=== PATIENT | female | born 1955 | race Caucasian/White ===

== ENCOUNTER → 2018-12-20 08:50 | Outpatient (CLI) | payer OTHER, SELFPAY ==
[2018-12-20 09:38] LABS: Add Manual Diff / Slide Review NO; Basophils Absolute Auto 0 /uL (0-100); Basophils Percent Auto 0.8 % (0-2); Eosinophils Absolute Auto 300 /uL (0-450); Hematocrit 41.4 % (36-46); Lymphocytes Absolute Auto 2200 /uL (1100-4500); Lymphocytes Percent Auto 42.2 % (25-40); Mean Corpuscular HGB Conc 33.7 % (30-36); Mean Corpuscular Hemoglobin 27.4 PG (26-34); Mean Corpuscular Volume 81.2 fL (80-100); Monocytes Absolute Auto 700 /uL (0-900); Monocytes Percent Auto 12.5 % (3-14); Neutrophils Absolute Auto 2000 /uL (1500-7000); Neutrophils Percent Auto 38.5 % (50-75); Platelet Count 275 X10^3/uL (150-400); White Blood Cell Count 5.2 X10^3/uL (4.5-11.0)
[2018-12-20 09:56] LABS: Alanine Aminotransferase 32 IU/L (9-52); Albumin 4.2 g/dL (3.5-5.0); Albumin Globulin Ratio 1.3 (1.0-2.8); Alkaline Phosphatase 73 U/L (38-126); Aspartate Aminotransferase 25 IU/L (14-36); BUN Creatinine Ratio 28.9 (6-22); Bilirubin Total 0.4 mg/dL (0.2-1.3); Blood Urea Nitrogen 26 mg/dL (7-17); Calcium 9.9 mg/dL (8.4-10.2); Carbon Dioxide 29 mmol/L (22-32); Chloride 102 mmol/L (98-107); Estimated Glomerular Filt Rate > 60.0 mL/min (>60); Globulin 3.3 g/dL (1.7-4.1); Glucose 97 mg/dL (80-110); HEMOLYSIS < 15 (0-50); Potassium 3.5 mmol/L (3.4-5.1); Sodium 139 mmol/L (137-145); Total Protein 7.5 g/dL (6.3-8.2)
== END ==
PROVIDERS: Internal Medicine Hematology & Oncology; Family Provider Family Medicine; PCP Family Medicine; Visit Provider Internal Medicine Hematology & Oncology
DX: C54.1 Malignant neoplasm of endometrium (principal)
CPT/HCPCS: 36415; 80053; 85025

== ENCOUNTER → 2020-07-08 10:40 | Oncology outpatient (ONC) | payer OTHER, SELFPAY ==
--- NOTE | 2019-01-01 15:03 | ONC.PN ---
PN -Subjective Interval history: 63 year old with stage IB endometrial adenocarcinoma with squamous metaplasia initially found during a D&C procedure on 07/19/2014 for abnormal vaginal bleeding. It was a FIGO grade 1 adenocarcinoma. She then went on to have a laparoscopic hysterectomy and BSO on 08/03/2014. Path showed that the lesion invaded into the outer one-third of the myometrium (1.4 cm with myometrial thickness of approximately 1.9 cm). No invasion into the cervix was identified. No LVI was seen. The patient had no other risk factors (BALWINDER). She subsequently underwent robotic pelvic and para-aortic lymphadenectomy on 09/23/2014 with no evidence of lymphatic involvement. She then finished vaginal brachytherapy in 10/2014. Thereafter, she has been on surveillance with [facility] She said that Everything has been fine. Good appetite, good energy level. No bleeding. No abdominal pain. . She is now seeing Dr. Martina Verdugo about one a year. She is up to date regarding mammogram. She is also seeing her regular GP at [place]. - Additional ROS All systems PM: reviewed and no additional remarkable complaints except as stated Home Medications and Allergies Home Medications Medication Instructions Recorded Confirmed Type estradiol [Vagifem] 10 mcg VAGINAL SEE INSTRUCTIONS #4 11/23/16 Rx tab hydrochlorothiazide 25 mg PO DAILY 01/01/19 01/01/19 History Allergies Allergy/AdvReac Type Severity Reaction Status Date / Time bee pollen [BEE POLLEN] Allergy Unknown Verified 01/01/19 15:17 codeine [CODEINE] Allergy Unknown Verified 01/01/19 15:17 hydrocodone [HYDROCODONE] Allergy Unknown Verified 01/01/19 15:17 Exam Vital signs: Last Vital Signs Temp 98.8 F 01/01/19 15:15 Pulse 85 01/01/19 15:15 Resp 20 01/01/19 15:15 BP 117/77 01/01/19 15:15 Pulse Ox 99 01/01/19 15:15 ECOG 1 Narrative: Constitutional: WDWN, NAD, well groomed, pleasant and cooperative. HEENT: NCAT, EOMI, PERRLA, anicteric sclera. Neck: Supple, No palpable thyromegaly or lymphadenopathy. Respiratory: Clear to auscultation, and no wheezes or rales or rubs. Cardiovascular: RRR, S1 and S2 normal, no M/G/R. No JVD. Abdomen: Soft, NTND, BS normal, no palpable organomegaly, no hernia, no palpable masses. Extremities: No LE pitting edema. Lymphatic: no palpable lymph nodes in the neck, axillae, or groins. Musculoskeletal: normal gait and station Skin: no rashes, no ulcers, no petechiae Neurological: AOx3, CN II-XII grossly intact. No focal motor or sensory deficit. Psychiatric: Good judgment and insight; normal affect; normal thought process; cooperative, no depression, no anxiety. Results - Labs Reviewed. - Imaging Additional studies: Procedures Endometrial ablation (07/19/14) Hysteroscopy (07/19/14) Laparoscopic removal of both ovaries and tubes at same operative episode (08/05/14) Laparoscopic total abdominal hysterectomy (08/05/14) Assessment and Plan (1) Malignant neoplasm of endometrium Problem details: 1. Stage IB endometrial adenocarcinoma with squamous metaplasia identified on a D and C procedure dated 07/19/2014. This confirmed a well-differentiated FIGO grade 1 adenocarcinoma. 2. Status post hysterectomy with bilateral oophorectomy on 08/03/2014. 3. Robotic pelvic and para-aortic lymphadenectomy on 09/23/2014, without evidence of lymphatic involvement. 4. Status post vaginal brachytherapy Assessment and Plan: I explained to the patient that clinically I do not think there is any evidence to suggest disease recurrence or metastasis. I encouraged the patient continue follow-up with her primary care provider as well as gynecological physician for scheduled visit. I talked with her if she notices anything different or discomfort, she needs to call us without any hesitation. Otherwise I will see the patient in 1 year. We will repeat CBC and CMP, LDH and CA125.
[2019-01-01 15:15] VITALS: BP 117/77; PULSE 85; RESP 20; TEMP 37.1; O2SAT 99
--- NOTE | 2020-03-25 09:41 | ONC.SCHED ---
left voice mail 03/18/20 for this patient to call back and get on Dr. Edgar's schedule for a one year follow up
[2020-05-07 12:38] LABS: Add Manual Diff / Slide Review NO; Basophils Absolute Auto 100 /uL (0-100); Basophils Percent Auto 1.1 % (0-2); Eosinophils Absolute Auto 200 /uL (0-450); Eosinophils Percent Auto 5.1 % (2-4); Hemoglobin 13.5 g/dL (12.0-16.0); Lymphocytes Absolute Auto 1900 /uL (1100-4500); Lymphocytes Percent Auto 39.2 % (25-40); Mean Corpuscular HGB Conc 34.6 % (30-36); Mean Corpuscular Hemoglobin 28.9 PG (26-34); Mean Corpuscular Volume 83.5 fL (80-100); Monocytes Absolute Auto 500 /uL (0-900); Monocytes Percent Auto 10.9 % (3-14); Neutrophils Absolute Auto 2100 /uL (1500-7000); Neutrophils Percent Auto 43.7 % (50-75); Platelet Count 258 X10^3/uL (150-400); Red Blood Cell Count 4.67 X10^6/uL (4.0-5.2); Red Cell Distribution Width 15.3 % (11.6-14.8); White Blood Cell Count 4.7 X10^3/uL (4.5-11.0)
[2020-05-07 12:51] LABS: Alanine Aminotransferase 28 IU/L (<35); Albumin 4.1 g/dL (3.5-5.0); Albumin Globulin Ratio 1.4 (1.0-2.8); Alkaline Phosphatase 79 U/L (38-126); Aspartate Aminotransferase 36 IU/L (14-36); BUN Creatinine Ratio 22.7 (6-22); Bilirubin Total 0.7 mg/dL (0.2-1.3); Blood Urea Nitrogen 17 mg/dL (7-17); Calcium 9.3 mg/dL (8.4-10.2); Carbon Dioxide 28 mmol/L (22-32); Chloride 104 mmol/L (98-107); Estimated Glomerular Filt Rate > 60.0 mL/min (>60); Globulin 2.9 g/dL (1.7-4.1); Glucose 102 mg/dL (80-110); HEMOLYSIS < 15 (0-50); Lactate Dehydrogenase 546 U/L (313-618); Potassium 3.1 mmol/L (3.4-5.1); Sodium 138 mmol/L (137-145)
[2020-05-07 13:22] LABS: Cancer Antigen 125 10.9 U/mL (0-35)
--- NOTE | 2020-05-08 12:56 | ONC.SCHED ---
patient had family emergency, cancelled appt for today, daughter in car accident and had to pick up worker her granddaughter, she will call to get back on Dr Edgar's schedule
--- NOTE | 2020-07-08 11:47 | ONC.PN ---
PN -Subjective Interval history: 65 year old with stage IB endometrial adenocarcinoma with squamous metaplasia initially found during a D&C procedure on 07/19/2014 for abnormal vaginal bleeding. It was a FIGO grade 1 adenocarcinoma. She then went on to have a laparoscopic hysterectomy and BSO on 08/03/2014. Path showed that the lesion invaded into the outer one-third of the myometrium (1.4 cm with myometrial thickness of approximately 1.9 cm). No invasion into the cervix was identified. No LVI was seen. The patient had no other risk factors (BALWINDER). She subsequently underwent robotic pelvic and para-aortic lymphadenectomy on 09/23/2014 with no evidence of lymphatic involvement. She then finished vaginal brachytherapy in 10/2014. Thereafter, she has been on surveillance with [facility] She said that Everything has been fine. Good appetite, good energy level. No bleeding. No abdominal pain. . She is now seeing Dr. Martina Verdugo about one a year. She is up to date regarding mammogram. She is also seeing her regular GP at [place]. Clinically, patient does not have any new signs or symptoms. She has good energy and good appetite. She denies any musculoskeletal pain. She denies any shortness of breath or chest pain. She denies any abdominal pain, diarrhea or constipation. - Additional ROS All systems PM: reviewed and no additional remarkable complaints except as stated Home Medications and Allergies Home Medications Medication Instructions Recorded Confirmed Type hydrochlorothiazide 25 mg PO DAILY 01/01/19 07/08/20 History potassium chloride 40 meq DAILY 07/08/20 07/08/20 History Allergies Allergy/AdvReac Type Severity Reaction Status Date / Time bee pollen [BEE POLLEN] Allergy Unknown Verified 11/05/19 15:23 codeine [CODEINE] Allergy Unknown Verified 11/05/19 15:23 hydrocodone [HYDROCODONE] Allergy Unknown Verified 11/05/19 15:23 Exam Vital signs: 07/08/20 11:57 Last Vital Signs Temp 98.8 F 01/01/19 15:15 Pulse 85 01/01/19 15:15 Resp 20 01/01/19 15:15 BP 117/77 01/01/19 15:15 Pulse Ox 99 01/01/19 15:15 - Constitutional positive no acute distress, positive obese, positive cooperative - Routine HEENT Exam Head: Present: normocephalic, atraumatic Eye: Present: EOMI, PERRL, normal accommodation. Absent: conjunctival icterus - Routine Neck Exam Present: supple. Absent: lymphadenopathy, thyromegaly - Routine Chest/Breast/Axilla Exam Axillae: Absent: lymphadenopathy - Routine Respiratory Exam Present: Clear to auscultation bilaterally. Absent: accessory muscle use, rales, rhonchi, wheezes, crackles - Routine Cardiovascular Exam Present: RRR, S1, S2. Absent: murmur, gallop, rubs - Routine Abdominal Exam Present: soft. Absent: tenderness, distended, organomegaly - Routine Extremities Exam Absent: edema - Routine Neurological Exam Present: alert, oriented X3, CN II-XII intact. Absent: sensory deficit, motor deficit - Routine Psychiatric Exam Present: normal affect Results - Labs Laboratory Last Values WBC 4.7 X10^3/uL (4.5-11.0) 05/07/20 12:29 RBC 4.67 X10^6/uL (4.0-5.2) 05/07/20 12:29 Hgb 13.5 g/dL (12.0-16.0) 05/07/20 12:29 Hct 39.0 % (36-46) 05/07/20 12:29 MCV 83.5 fL (80-100) 05/07/20 12:29 MCH 28.9 PG (26-34) 05/07/20 12:29 MCHC 34.6 % (30-36) 05/07/20 12:29 RDW 15.3 % (11.6-14.8) H 05/07/20 12:29 Plt Count 258 X10^3/uL (150-400) 05/07/20 12:29 Neut % (Auto) 43.7 % (50-75) L 05/07/20 12:29 Lymph % (Auto) 39.2 % (25-40) 05/07/20 12:29 [place] % (Auto) 10.9 % (3-14) 05/07/20 12:29 Eos % (Auto) 5.1 % (2-4) H 05/07/20 12:29 Baso % (Auto) 1.1 % (0-2) 05/07/20 12:29 Neut # (Auto) 2100 /uL (7109-4393) 05/07/20 12:29 Lymph # (Auto) 1900 /uL (8511-3217) 05/07/20 12:29 [place] # (Auto) 500 /uL (0-900) 05/07/20 12:29 Eos # (Auto) 200 /uL (0-450) 05/07/20 12:29 Baso # (Auto) 100 /uL (0-100) 05/07/20 12:29 Sodium 138 mmol/L (137-145) 05/07/20 12:29 Potassium 3.1 mmol/L (3.4-5.1) L 05/07/20 12: Chloride 104 mmol/L (98-107) 05/07/20 12: Carbon Dioxide 28 mmol/L (22-32) 05/07/20 12: BUN 17 mg/dL (7-17) 05/07/20 12:29 Creatinine 0.75 mg/dL (0.52-1.04) 05/07/20 12: Estimated GFR > 60.0 mL/min (>60) 05/07/20 12: BUN/Creatinine Ratio 22.7 (6-22) H 05/07/20 12: Glucose 102 mg/dL (80-110) 05/07/20 12: Calcium 9.3 mg/dL (8.4-10.2) 05/07/20 12: Total Bilirubin 0.7 mg/dL (0.2-1.3) 05/07/20 12:29 AST 36 IU/L (14-36) 05/07/20 12: ALT 28 IU/L (<35) 05/07/20 12:29 Alkaline Phosphatase 79 U/L (38-126) 05/07/20 12:29 Lactate Dehydrogenase 546 U/L (313-618) 05/07/20 12:29 Total Protein 7.0 g/dL (6.3-8.2) 05/07/20 12:29 Albumin 4.1 g/dL (3.5-5.0) 05/07/20 12:29 Globulin 2.9 g/dL (1.7-4.1) 05/07/20 12:29 Albumin/Globulin Ratio 1.4 (1.0-2.8) 05/07/20 12:29 CA 125 Antigen 10.9 U/mL (0-35) 05/07/20 12:29 - Imaging Additional studies: Procedures Endometrial ablation (07/19/14) Hysteroscopy (07/19/14) Laparoscopic removal of both ovaries and tubes at same operative episode (08/05/14) Laparoscopic total abdominal hysterectomy (08/05/14) Assessment and Plan (1) Malignant neoplasm of endometrium [place]: 1. Stage IB endometrial adenocarcinoma with squamous metaplasia identified on a D and C procedure dated 07/19/2014. This confirmed a well-differentiated FIGO grade 1 adenocarcinoma. 2. Status post hysterectomy with bilateral oophorectomy on 08/03/2014. 3. Robotic pelvic and para-aortic lymphadenectomy on 09/23/2014, without evidence of lymphatic involvement. 4. Status post vaginal brachytherapy Assessment and Plan: Clinically, I do not think there is any signs or symptoms to suggest disease recurrence or metastasis. Patient said that she is now retiring and she is planning to move to [facility]. She has already sold her house. I talked with her once she knows the local oncologist, she can call us give us the name of the local oncologist and we would be happy to send every records we have here. Patient voiced understanding.
[2020-07-08 12:02] VITALS: BP 132/80; PULSE 78; RESP 20; TEMP 36.6; O2SAT 99
== END ==
PROVIDERS: Family Provider Family Medicine; PCP Family Medicine; Visit Provider Internal Medicine Hematology & Oncology
DX: Z08 Encounter for follow-up examination after completed treatment for malignant neoplasm (principal); Z85.42 Personal history of malignant neoplasm of other parts of uterus; Z90.710 Acquired absence of both cervix and uterus
CPT/HCPCS: 36415; 80053; 83615; 85025; 86304; 99214